=== PATIENT | male | born 1990 | race African-American/Black ===

== ENCOUNTER 2025-03-23 14:33 | Emergency (ER) | payer SELFPAY ==
[~2025-03-23] VITALS: Ht 175.3 cm; Wt 60.0 kg
[2025-03-23 14:41] VITALS: O2SAT 100
[2025-03-23] MEDS ORDERED: ACET-2708 MT (15:45)
[2025-03-23] MEDS ORDERED: LIDO-53 TP (15:45)
[2025-03-23 16:20] VITALS: TEMP 37.1; O2SAT 100
[2025-03-23 16:23] VITALS: BP 122/88; PULSE 71; RESP 16
[2025-03-23] MEDS: KETOROLAC 30MG/ML VIAL IM ONE (16:23)
== END 2025-03-23 16:30 | disposition home or self-care (01) ==
LOC: ER 14:33
DX: M25.512 Pain in left shoulder (principal)
CPT/HCPCS: 73030; 96372; 99283; J1885; Z7610